=== PATIENT | male | born 2000 | race Two or more races ===

== ENCOUNTER 2020-10-17 14:28 | Outpatient (REF) | payer OTHER, SELFPAY | END 2020-10-17 14:29 | disposition home or self-care (01) | LOC: HO.LAB 14:28 | PROVIDERS: Visit Provider Internal Medicine | DX: Z20.828 Contact with and (suspected) exposure to other viral communicable diseases (principal) | CPT/HCPCS: C9803; U0003 ==

== ENCOUNTER 2021-09-29 13:23 | Outpatient (REF) | payer OTHER, SELFPAY | END 2021-09-29 13:24 | disposition home or self-care (01) | LOC: HO.LAB 13:23 | PROVIDERS: Visit Provider Internal Medicine | DX: Z20.822 Contact with and (suspected) exposure to COVID-19 (principal) | CPT/HCPCS: C9803; U0003; U0005 ==

== ENCOUNTER 2022-08-05 09:45 | Emergency (ER) | payer OTHER, SELFPAY ==
[2022-08-05 09:54] VITALS: BP 122/80; PULSE 81; RESP 20; TEMP 36.3; O2SAT 95; BMI 32.1
[2022-08-05 10:18] LABS: MANUAL DIFF FLAG NO
[2022-08-05 10:19] LABS: Basophils Percent Auto 0.3 % (0-2); Eosinophils Absolute Auto 0.2 X10*3/uL (0.0-0.4); Eosinophils Percent Auto 1.4 % (0-4); Hematocrit 44.1 % (42.0-52.0); Hemoglobin 14.8 g/dl (14.0-18.0); Imm Gran Abs Auto 0.03 X10*3/uL (0.00-0.03); Imm Gran Pct Auto 0.3 % (0.0-0.4); Lymphocytes Absolute Auto 3.1 X10*3/uL (1.2-4.9); Lymphocytes Percent Auto 25.8 % (20-40); Mean Corpuscular HGB Conc 33.6 g/dl (31.0-36.0); Mean Corpuscular Hemoglobin 29.2 pg (27.0-33.0); Mean Corpuscular Volume 87.2 fL (80.0-98.0); Mean Platelet Volume 8.9 fL (9.4-12.4); Monocytes Absolute Auto 1.1 X10*3/uL (0.1-1.2); Neutrophils Absolute Auto 7.5 x10*3/uL (2.0-8.3); Neutrophils Percent Auto 63.2 % (45-73); Platelet Count 409 X10*3/uL (160-400); Red Blood Count 5.06 X10*6/uL (4.60-5.80); Red Cell Distribution Width 14.3 % (11.0-16.0); White Blood Count 11.8 X10*3/uL (4.8-10.8)
[2022-08-05 10:35] LABS: Alanine Aminotransferase 33 U/L (0-40); Albumin Level 4.3 g/dL (3.5-5.0); Alkaline Phosphatase 230 U/L (39-117); Anion Gap 15 (12-20); Aspartate Amino Transferase 22 U/L (5-37); Bilirubin Direct < 0.2 mg/dL (0.0-0.5); Bilirubin Total 0.3 mg/dL (0.0-1.0); Blood Urea Nitrogen 12 mg/dL (9-16); Calcium 9.2 mg/dL (8.4-10.2); Carbon Dioxide 23 mmol/L (22-29); Chloride 106 mmol/L (96-108); Creatinine Clr Calc Pharmacy 183.1; Estimated Glomerular Filt Rate > 60; Glucose Random 88 mg/dL (60-115); Lipase 22 U/L (8-78); Potassium 4.4 mmol/L (3.3-5.1); Sodium 140 mmol/L (135-145); Total Protein 7.4 g/dL (6.5-8.0)
[2022-08-05 12:50] VITALS: BP 140/62; PULSE 67; RESP 14; TEMP 36.8; O2SAT 97
--- NOTE | 2022-08-05 13:00 | ECG_ITS ---
Test Reason : lethargy Blood Pressure : / mmHG Vent. Rate : 064 BPM Atrial Rate : 064 BPM P-R Int : 192 ms QRS Dur : 094 ms QT Int : 408 ms P-R-T Axes : 033 012 026 degrees QTc Int : 420 ms Normal sinus rhythm Normal ECG When compared with ECG of 09-JUN-2020 11:20, No significant change was found Referred By: Marsha Bean Electronically Signed By:MYKEL LUU
[2022-08-05 13:36] LABS: Magnesium 1.9 mg/dL (1.6-2.6)
[2022-08-05 13:39] LABS: Troponin-I High Sensitivity < 3.5 ng/L (<3.5-35.0)
--- NOTE | 2022-08-05 13:42 | PC.NURSE ---
patient a/ox4 . ivonnerla . heart rate regular at 72 betas per minute . lungs clear .skin pink warm and dry . abdomen soft not tender . positive bowel sounds throughout . patient c/o difficult /painful urination that has increased over last few months . UA has been obtained and set to lab for analysis . patient aware of plan of care .
--- NOTE | 2022-08-05 13:52 | ED.GENADULT ---
HPI - General Adult General Chief complaint: General Medical Stated complaint: Diabetic Diff Seeing Can't Hold Urine Time Seen by Provider: 08/05/22 12:52 Source: patient Mode of arrival: ambulatory History of Present Illness HPI narrative: 21-year-old male with no past medical history pre diabetes, presenting to the ED complaining of frequent urination, intermittent blurry vision, lethargy/malaise times years. Denies blurry vision at present. Denies fever, recent illness, headache, vision loss, CP/ SOB, abdominal pain, nausea / vomiting, dysuria /hematuria. eating and drinking well. Denies recent travel Onset (ago): year(s) Related Data Allergies Allergy/AdvReac Type Severity Reaction Status Date / Time No Known Allergies Allergy Unverified 07/17/20 18:52 [No Known Allergies*] Review of Systems Review of Systems: Constitutional: No Fever, No Chills, + Fatigue, + Malaise ENT/Mouth: No Ear Pain, No Nasal Congestion, No Sinus Pain, No sore throat, No Rhinorrhea, No Swallowing Difficulty Eyes: No Eye Pain, No Swelling, No Redness, No Foreign Body, No Discharge, + blurry vision Cardiovascular: No Chest Pain, No SOB, No Edema, No Palpitations Respiratory: No Cough, No Sputum, No Dyspnea Gastrointestinal: No Nausea, No Vomiting, No Diarrhea, No Constipation, No Abdominal pain Genitourinary: No Dysuria, + Urinary Frequency, No Hematuria, No Urinary Incontinence/retention, No Urgency, No Flank Pain, No Urinary Flow Changes, No Hesitancy Musculoskeletal: No joint pain, No Myalgias, No Joint Swelling Skin: No Skin Lesions, No rash Neuro: No Weakness, No Numbness, No Paresthesias, No Loss of Consciousness, No Dizziness, No Headache Yes all other systems are reviewed and are negative Constitutional: Constitutional: Reports as per HPI Neurologic: Denies Abnormal speech present [facility] Past Medical History Attestation statement: The following information was validated with the patient. Social History Social History Patient Tobacco Use Status: Never used Tobacco Substance Use Type: Marijuana Substance Use Frequency: Daily Advance Directives: No Advance Directives Information Provided: Yes Physical Exam ED Vital Signs: Vital Signs - 24 hr 08/05/22 09:54 08/05/22 12:50 Temperature 97.3 F 98.2 F Pulse Rate 81 67 Respiratory Rate 20 14 Blood Pressure 122/80 140/62 H Pulse Oximetry 95 97 Oxygen Delivery Method Room Air Room Air BMI result Body Mass Index 32.1 Const General: cooperative, healthy appearing, no acute distress, alert, awake and Physically active Orientation/consciousness: patient oriented x3 Limitations: no limitations HENMT Head: Yes normal to inspection and Yes atraumatic Ears: hearing grossly normal bilaterally General nose exam: Normal external nose present Face and sinus: Yes normal facial exam Throat: Yes posterior oropharynx normal, Yes tonsils normal, Yes uvula midline, No uvula laterally displaced and No uvular edema Eyes General: appearance normal, both eyes and all related structures EOM: EOMs intact bilaterally Neck Neck: Yes normal visual inspection and Yes no meningeal signs Resp Effort & Inspection: normal respiratory effort and no respiratory distress Auscultation: clear to auscultation bilaterally, no crackles, no rales, no rhonchi and no wheezes Cardio Rate: regular rate Heart sounds: S1 normal heart sound present and S2 normal heart sound present GI Inspection: Yes normal to inspection Palpation (GI): Soft to palpation, nontender, no guarding and not rigid General: Yes no CVA tenderness Back/Spine/Pelvis Back: no CVA tenderness Skin Rashes: no rashes Wounds: no wounds Neuro General: patient oriented x3, gait normal, tone normal, moves all extremities, no meningeal signs, no focal motor deficits and CN's II-XI intact bilaterally Cranial nerves: Yes CN's II-XII intact bilaterally and Yes Bilaterally intact EOM present Cognition (Neuro): normal cognition Speech: No Abnormal speech present Gait exam (Neuro): Normal gait present Motor exam (neuro): 5/5 motor strength present throughout Extrem General: Yes normal to inspection, Yes no pedal edema and Yes no calf tenderness Course Course Course Narrative: -1416-- mild leukocytosis of 11.8. Labs otherwise reassuring. Troponin negative. - UA negative. COVID-19 negative -1535-- hemoglobin A1c 5.5 Results discussed with patient including worrisome signs and symptoms and strict return precautions, and when to return to the emergency department. They verbalized understanding and feel safe for discharge at this time. Medical Decision Making MDM Narrative Medical decision making narrative: 21-year-old male with no past medical history pre diabetes, presenting to the ED complaining of frequent urination, intermittent blurry vision, lethargy/malaise x years. On exam VSS, NAD, well appearing, lungs CTA, abd soft nontender, no focal neuro deficits, no pedal edema. Concern for viral illness vs metabolic abnormalities vs underlying diabetes vs UTI/other infectious etiology. Low suspicion for ICH /SAH or CVA/TIA plan: EKG, labs, UA, COVID 19/influenza testing, p.o. hydration Medical Records Medical records reviewed: Yes I reviewed the patient's medical records. Lab Data Lab results reviewed: Yes I reviewed the patient's lab results. Result diagrams: 08/05/22 10:12 08/05/22 10:12 Labs: Lab Results 08/05/22 08/05/22 08/05/22 Range/Units 10:12 10:12 10:12 WBC 11.8 H (4.8-10.8) X10*3/uL RBC 5.06 (4.60-5.80) X10*6/uL Hgb 14.8 (14.0-18.0) g/dl Hct 44.1 (42.0-52.0) % MCV 87.2 (80.0-98.0) fL MCH 29.2 (27.0-33.0) pg MCHC 33.6 (31.0-36.0) g/dl RDW 14.3 (11.0-16.0) % Plt Count 409 H (160-400) X10*3/uL MPV 8.9 L (9.4-12.4) fL Immature Gran % (Auto) 0.3 (0.0-0.4) % Neut % (Auto) 63.2 (45-73) % Lymph % (Auto) 25.8 (20-40) % [place] % (Auto) 9.0 (2-11) % Eos % (Auto) 1.4 (0-4) % Baso % (Auto) 0.3 (0-2) % Lymph # (Auto) 3.1 (1.2-4.9) X10*3/uL [place] # (Auto) 1.1 (0.1-1.2) X10*3/uL Eos # (Auto) 0.2 (0.0-0.4) X10*3/uL Baso # (Auto) 0.0 (0.0-0.2) X10*3/uL Abs Immat Gran (auto) 0.03 (0.00-0.03) X10*3/uL Absolute Neuts (auto) 7.5 (2.0-8.3) x10*3/uL Absolute Nucleated RBC 0.000 (0.0-0.012) X10*3/uL Nucleated RBC % (auto) 0.0 (0.0-0.2) /100WBC Sodium 140 (135-145) mmol/L Potassium 4.4 (3.3-5.1) mmol/L Chloride 106 (96-108) mmol/L Carbon Dioxide 23 (22-29) mmol/L Anion Gap 15 (12-20) BUN 12 (9-16) mg/dL Creatinine 0.84 (0.5-1.4) mg/dL Estim Creat Clear Calc 183.1 Estimated GFR > 60 Random Glucose 88 (60-115) mg/dL Estimat Average Glucose mg/dL Hemoglobin A1c % % Calcium 9.2 (8.4-10.2) mg/dL Magnesium 1.9 (1.6-2.6) mg/dL Total Bilirubin 0.3 (0.0-1.0) mg/dL Direct Bilirubin < 0.2 (0.0-0.5) mg/dL AST 22 (5-37) U/L ALT 33 (0-40) U/L Alkaline Phosphatase 230 H (39-117) U/L Troponin I High Sens < 3.5 (<3.5-35.0) ng/L Total Protein 7.4 (6.5-8.0) g/dL Albumin 4.3 (3.5-5.0) g/dL Lipase 22 (8-78) U/L Urine Color Urine Appearance Urine pH (5.0-9.0) Ur Specific [place] (1.005-1.025) Urine Protein (Neg-Trace) mg/dL Urine Glucose (UA) (Negative) mg/dL Urine Ketones (Negative) mg/dL Urine Blood (Negative) Urine Nitrite (Negative) Ur Leukocyte Esterase (Negative) COVID-19 (ARLETTE) (Negative) COVID-19 Clin Com Influenza Type A (DAVID) (Negative) Influenza Type B (DAVID) (Negative) Influenza A & B Note 08/05/22 08/05/22 08/05/22 Range/Units 13:39 13:39 13:39 WBC (4.8-10.8) X10*3/uL RBC (4.60-5.80) X10*6/uL Hgb (14.0-18.0) g/dl Hct (42.0-52.0) % MCV (80.0-98.0) fL MCH (27.0-33.0) pg MCHC (31.0-36.0) g/dl RDW (11.0-16.0) % Plt Count (160-400) X10*3/uL MPV (9.4-12.4) fL Immature Gran % (Auto) (0.0-0.4) % Neut % (Auto) (45-73) % Lymph % (Auto) (20-40) % [place] % (Auto) (2-11) % Eos % (Auto) (0-4) % Baso % (Auto) (0-2) % Lymph # (Auto) (1.2-4.9) X10*3/uL [place] # (Auto) (0.1-1.2) X10*3/uL Eos # (Auto) (0.0-0.4) X10*3/uL Baso # (Auto) (0.0-0.2) X10*3/uL Abs Immat Gran (auto) (0.00-0.03) X10*3/uL Absolute Neuts (auto) (2.0-8.3) x10*3/uL Absolute Nucleated RBC (0.0-0.012) X10*3/uL Nucleated RBC % (auto) (0.0-0.2) /100WBC Sodium (135-145) mmol/L Potassium (3.3-5.1) mmol/L Chloride (96-108) mmol/L Carbon Dioxide (22-29) mmol/L Anion Gap (12-20) BUN (9-16) mg/dL Creatinine (0.5-1.4) mg/dL Estim Creat Clear Calc Estimated GFR Random Glucose (60-115) mg/dL Estimat Average Glucose mg/dL Hemoglobin A1c % % Calcium (8.4-10.2) mg/dL Magnesium (1.6-2.6) mg/dL Total Bilirubin (0.0-1.0) mg/dL Direct Bilirubin (0.0-0.5) mg/dL AST (5-37) U/L ALT (0-40) U/L Alkaline Phosphatase (39-117) U/L Troponin I High Sens (<3.5-35.0) ng/L Total Protein (6.5-8.0) g/dL Albumin (3.5-5.0) g/dL Lipase (8-78) U/L Urine Color Yellow Urine Appearance Clear Urine pH 7.0 (5.0-9.0) Ur Specific [place] 1.020 (1.005-1.025) Urine Protein Negative (Neg-Trace) mg/dL Urine Glucose (UA) Negative (Negative) mg/dL Urine Ketones Negative (Negative) mg/dL Urine Blood Negative (Negative) Urine Nitrite Negative (Negative) Ur Leukocyte Esterase Negative (Negative) COVID-19 (ARLETTE) Negative (Negative) COVID-19 Clin Com See Note Influenza Type A (DAVID) Negative (Negative) Influenza Type B (DAVID) Negative (Negative) Influenza A & B Note See Note 08/05/22 Range/Units 14:57 WBC (4.8-10.8) X10*3/uL RBC (4.60-5.80) X10*6/uL Hgb (14.0-18.0) g/dl Hct (42.0-52.0) % MCV (80.0-98.0) fL MCH (27.0-33.0) pg MCHC (31.0-36.0) g/dl RDW (11.0-16.0) % Plt Count (160-400) X10*3/uL MPV (9.4-12.4) fL Immature Gran % (Auto) (0.0-0.4) % Neut % (Auto) (45-73) % Lymph % (Auto) (20-40) % [place] % (Auto) (2-11) % Eos % (Auto) (0-4) % Baso % (Auto) (0-2) % Lymph # (Auto) (1.2-4.9) X10*3/uL [place] # (Auto) (0.1-1.2) X10*3/uL Eos # (Auto) (0.0-0.4) X10*3/uL Baso # (Auto) (0.0-0.2) X10*3/uL Abs Immat Gran (auto) (0.00-0.03) X10*3/uL Absolute Neuts (auto) (2.0-8.3) x10*3/uL Absolute Nucleated RBC (0.0-0.012) X10*3/uL Nucleated RBC % (auto) (0.0-0.2) /100WBC Sodium (135-145) mmol/L Potassium (3.3-5.1) mmol/L Chloride (96-108) mmol/L Carbon Dioxide (22-29) mmol/L Anion Gap (12-20) BUN (9-16) mg/dL Creatinine (0.5-1.4) mg/dL Estim Creat Clear Calc Estimated GFR Random Glucose (60-115) mg/dL Estimat Average Glucose 111 mg/dL Hemoglobin A1c % 5.5 % Calcium (8.4-10.2) mg/dL Magnesium (1.6-2.6) mg/dL Total Bilirubin (0.0-1.0) mg/dL Direct Bilirubin (0.0-0.5) mg/dL AST (5-37) U/L ALT (0-40) U/L Alkaline Phosphatase (39-117) U/L Troponin I High Sens (<3.5-35.0) ng/L Total Protein (6.5-8.0) g/dL Albumin (3.5-5.0) g/dL Lipase (8-78) U/L Urine Color Urine Appearance Urine pH (5.0-9.0) Ur Specific [place] (1.005-1.025) Urine Protein (Neg-Trace) mg/dL Urine Glucose (UA) (Negative) mg/dL Urine Ketones (Negative) mg/dL Urine Blood (Negative) Urine Nitrite (Negative) Ur Leukocyte Esterase (Negative) COVID-19 (ARLETTE) (Negative) COVID-19 Clin Com Influenza Type A (DAVID) (Negative) Influenza Type B (DAVID) (Negative) Influenza A & B Note Discharge Plan Discharge Clinical Impression: Fatigue, Urinary frequency Patient Disposition: Home, Self-Care Instructions: Fatigue (ED) Additional Instructions: your blood work was reassuring today in the emergency department you tested negative for COVID-19 and the flu please establish care with a primary care doctor. Stay hydrated. return to the emergency department if symptoms persist or worsen Referrals: Salo Heath MD [Physician] -
[2022-08-05 13:57] LABS: Appearance Urine Clear; Color Urine Yellow; Glucose Urine UA Negative (Negative); Leukocyte Esterase Urine Negative (Negative); Nitrite Urine Negative (Negative); Urine Blood Negative (Negative); Urine Ketones Negative (Negative); Urine Protein Negative (Neg-Trace)
[2022-08-05 14:08] LABS: COVID-19 Test Negative (Negative)
[2022-08-05 15:05] LABS: Influenza A Negative (Negative); Influenza B2 Negative (Negative)
[2022-08-05 15:25] LABS: Estimated Average Glucose 111 mg/dL; Hemoglobin A1c % 5.5 %
== END 2022-08-05 15:50 | disposition home or self-care (01) ==
PROVIDERS: Physician Assistant; Emergency Provider Emergency Medicine
DX: R53.83 Other fatigue (principal); R35.0 Frequency of micturition; F12.90 Cannabis use, unspecified, uncomplicated; Z20.822 Contact with and (suspected) exposure to COVID-19; E11.9 Type 2 diabetes mellitus without complications
CPT/HCPCS: 36415; 80048; 80076; 81003; 83036; 83690; 83735; 84484; 85025; 87502; 87635; 93005; 99283; 99284